=== PATIENT | male | born 1985 | race Caucasian/White ===

== ENCOUNTER 2018-02-26 21:36 | Emergency (ER) | payer SELFPAY ==
[2018-02-26 21:50] VITALS: BP 162/91
[2018-02-26] MEDS ORDERED: VENLAFAXINE ER 75 MG CAPSULE PO STA (22:02)
--- NOTE | 2018-02-26 22:07 | ED Physician Documentation ---
History of Present Illness - Stated complaint Stated Complaint: MED REFILL - Chief complaint Chief Complaint: General - History obtained from History obtained from: Patient - History of Present Illness Timing: Other (He moved from [place], ran out of his Effexor 3 days ago and does not have access to primary care here. He needs a refill of his Effexor. He is having withdrawal symptoms, sweats anxiety and poor sleep. No suicidal or homicidal ideation.) Review of Systems Constitutional: reports: Sweats. denies: Fever, Chills Cardiac: denies: Chest pain / pressure, Palpitations Respiratory: denies: Dyspnea, Cough PD PAST MEDICAL HISTORY - Past Medical History Past Medical History: Yes Psych: Depression, Anxiety - Past Surgical History Past Surgical History: No - Present Medications Home Medications: Ambulatory Orders Medication Instructions Recorded Confirmed Venlafaxine HCl 2 tab PO DAILY #240 tablet 02/26/18 Venlafaxine HCl [Effexor Xr] 225 mg PO DAILY 02/26/18 02/26/18 Venlafaxine HCl [Venlafaxine HCl 1 tab PO DAILY #120 cap.er.24h 02/26/18 ER] - Allergies Allergies/Adverse Reactions: Allergies Allergy/AdvReac Type Severity Reaction Status Date / Time No Known Drug Allergies Allergy Verified 02/26/18 21:55 - Social History Does the pt smoke?: Yes Smoking Status: Current every day smoker Does the pt drink ETOH?: Yes ETOH Use: Beer Does the pt have substance abuse?: Yes Substance Use and Type: Marijuana - Immunizations Immunizations are current?: Yes - POLST Patient has POLST: No PD ED PE NORMAL - Vitals Vital signs reviewed: Yes - General General: Alert and oriented X 3, No acute distress - Abdomen Abdomen: Normal bowel sounds, Soft, Non tender - Neuro Neuro: Alert and oriented X 3, Normal speech Results - Vitals Vitals: Vital Signs - 24 hr 02/26/18 21:48 Temperature 36.0 C L Heart Rate 80 Respiratory 18 Rate Blood Pressure 162/91 H O2 Saturation 100 Oxygen O2 Source Room air Departure - Departure Disposition: 01 Home, Self Care Clinical Impression: Medication refill Depression Qualifiers: Depression Type: major depressive disorder Major depression recurrence: recurrent Active/Remission status: currently active Major depression episode severity: moderate Qualified Code(s): F33.1 - Major depressive disorder, recurrent, moderate Condition: Good Record reviewed to determine appropriate education?: Yes Instructions: ED Depression Prescriptions: Venlafaxine HCl [Venlafaxine HCl ER] 1 tab PO DAILY #120 cap.er.24h Venlafaxine HCl 2 tab PO DAILY #240 tablet Comments: Call your doctor to arrange a follow-up appointment, make the next available appointment. In the interim, return anytime if worse or if new symptoms develop. Your blood pressure was elevated today on check into the emergency department. This does not mean that you have hypertension, it is a common phenomenon to come to the emergency department and have elevated blood pressure. I recommend that you see your primary care physician within the week to have it rechecked when you are feeling better.
== END 2018-02-26 22:10 | disposition home or self-care (01) ==
LOC: ED 21:36
DX: Z76.0 Encounter for issue of repeat prescription (principal); F33.1 Major depressive disorder, recurrent, moderate; R03.0 Elevated blood-pressure reading, without diagnosis of hypertension; F17.200 Nicotine dependence, unspecified, uncomplicated
CPT/HCPCS: 99283; A9270